=== PATIENT | female | born 1945 | race Caucasian/White ===

== ENCOUNTER 2023-12-05 02:58 | Inpatient (IN) | payer MEDICARE ==
[2023-12-05] MEDS ORDERED: Ondansetron PF 4 MG/2 ML Vial ONE (03:13)
[2023-12-05] MEDS ORDERED: Acetaminophen 500 MG TAB ONE (03:37)
[2023-12-05 03:45] LABS: Hematocrit 36.6 % (36.0-47.0); Hemoglobin 12.1 g/dL (12.0-16.0); Mean Corpuscular HGB CONC 33.1 g/dL (32.0-36.0); Mean Corpuscular Hemoglobin 33.3 pg (27.0-31.0); Mean Corpuscular Volume 100.8 fL (78.0-98.0); Mean Platelet Volume 9.5 fL (7.4-10.4); Platelet Count 273 10x3/uL (130-400); RBC Distribution Width 13.9 % (11.5-14.5); Red Blood Cell (RBC) Count 3.63 mill/uL (4.20-5.40)
[2023-12-05 04:03] LABS: ALT (SGPT) 35 U/L (8-55); AST (SGOT) 34 U/L (5-34); Albumin 3.6 g/dL (3.4-4.8); Alkaline Phosphatase 95 U/L (40-110); Anion Gap 11 mmol/L (10-20); BUN (Urea Nitrogen) 16 mg/dL (9.8-20.1); Bilirubin, Total 1.1 mg/dL (0.2-1.2); Calc. Creatinine Clearance 0 mL/min (70-130); Calcium 8.7 mg/dL (7.8-10.44); Carbon Dioxide 23 mmol/L (23-31); Chloride 105 mmol/L (98-107); Estimated GFR 58; Globulin 2.6 g/dL (2.4-3.5); Glucose 91 mg/dL (83-110); Protein, Total 6.2 g/dL (5.8-8.1); Sodium 136 mmol/L (136-145)
[2023-12-05] MEDS ORDERED: Sodium Chloride 0.9% 100 ML ONE (04:10)
[2023-12-05] MEDS ORDERED: Cefepime 2 GM VIAL ONE (04:10)
[2023-12-05 04:14] LABS: Band 10 % (5-11); Lymphocytes 2 % (21-51); Macrocytosis SLIGHT = 6-15 cells HPF (0-5); Metamyelocyte 8 % (0-0); Myelocyte 2 % (0-0); Neutrophil 79 % (42-75); Ovalocytes SLIGHT = 2-5 cells HPF (0-1); Platelet Adequacy Comment Platelets Normal; Toxic Granulation SLIGHT
[2023-12-05 06:08] LABS: Bacteria/HPF None Seen HPF (None Seen); Bilirubin Negative (Negative); Blood, Urine Negative (Negative); CAUTI Indications for Culture Fever or rigors; Clarity Clear (Clear); Glucose, Urine (Dipstick) Normal (Negative); Ketone, Urine Negative (Negative); Leukocyte Negative Leu/uL (Negative); Nitrite Negative (Negative); Protein, Urine (Dipstick) Negative (Neg-Trace); RBC/HPF 0-3 HPF (0-3); Specific Gravity, Urine 1.024 (1.002-1.036); Squamous Epithelial 0-3 HPF (0-3); Urobilinogen Normal mg/dL (Less than 2); WBC/HPF 0-3 HPF (0-3)
[2023-12-05] MEDS ORDERED: Promethazine HCl 25 MG/ML VIAL ONE (06:12)
[2023-12-05 06:18] LABS: Urine Culture Reflex No No
[2023-12-05] MEDS ORDERED: Potassium Chloride 20 MEQ TAB ONE (08:04)
[2023-12-05] MEDS ORDERED: Loperamide HCl 2 MG CAP PO PRN ×2 (08:54)
[2023-12-05] MEDS: Vancomycin 1 GM in Premix 1 BAG IVPB SCH (09:43)
[2023-12-05] MEDS: Famotidine/PF 20 mg/2ml Vial SLOW IVP SCH (09:43)
[2023-12-05] MEDS: Enoxaparin 40 MG (0.4 mL) SYRINGE SC SCH (09:43)
[2023-12-05] MEDS: Sodium Chloride 0.9% 1,000 ML IV SCH (10:00)
[2023-12-05 10:37] LABS: Vancomycin, Random Less than 1.4 ug/mL (See Comment)
[2023-12-05] MEDS: Vancomycin 1 GM in Sodium Chloride 0.9% 250 ML 300 ML IVPB SCH (10:38)
[2023-12-05] MEDS ORDERED: Iopamidol-370 76% 500 ML MDV (1 ML CHARGE) ONE (11:00)
[2023-12-05 11:46] LABS: Vancomycin, Trough Less than 1.4 ug/mL
[2023-12-05] MEDS: Vancomycin (BATCH) 1.5 GM in Premix 1 BAG IVPB SCH (12:56)
[2023-12-05] MEDS: Acetaminophen 325 MG TAB PO PRN (15:33)
[2023-12-05] MEDS: Ondansetron PF 4 MG/2 ML Vial IVP PRN (15:34)
[2023-12-05] MEDS: Cefepime 2 GM in Sodium Chloride 0.9% 100 ML IVPB SCH (15:34)
[2023-12-05] MEDS: Amlodipine 10 MG TAB PO SCH (20:45)
[2023-12-05] MEDS: ALPRAZolam 0.5 MG TAB PO SCH (20:46)
[2023-12-06] MEDS: Cefepime 2 GM in Sodium Chloride 0.9% 100 ML IVPB SCH (04:17)
[2023-12-06 09:09] LABS: Hematocrit 29.6 % (36.0-47.0); Hemoglobin 9.7 g/dL (12.0-16.0); Mean Corpuscular HGB CONC 32.8 g/dL (32.0-36.0); Mean Corpuscular Hemoglobin 33.2 pg (27.0-31.0); Mean Corpuscular Volume 101.4 fL (78.0-98.0); Mean Platelet Volume 10.4 fL (7.4-10.4); Platelet Count 175 10x3/uL (130-400); Red Blood Cell (RBC) Count 2.92 mill/uL (4.20-5.40)
[2023-12-06 09:19] LABS: Anion Gap 10 mmol/L (10-20); BUN (Urea Nitrogen) 11 mg/dL (9.8-20.1); Calc. Creatinine Clearance 68 mL/min (70-130); Calcium 8.1 mg/dL (7.8-10.44); Carbon Dioxide 21 mmol/L (23-31); Chloride 107 mmol/L (98-107); Estimated GFR 80; Glucose 78 mg/dL (83-110); Sodium 135 mmol/L (136-145)
[2023-12-06] MEDS ORDERED: Acetaminophen 325 MG TAB PO PRN (10:22)
[2023-12-06] MEDS ORDERED: TRAMADOL HCL 25 MG PO PRN (10:22)
[2023-12-06] MEDS ORDERED: traMADol HCl 50 MG TAB PO PRN (10:26)
[2023-12-06] MEDS: Potassium Chloride 20 MEQ TAB PO SCH (10:44)
[2023-12-06] MEDS: Vancomycin HCl 750 MG in Sodium Chloride 0.9% 250 ML 250 ML IVPB SCH (10:45)
[2023-12-06 12:06] LABS: Band 10 % (5-11); Burr Cells SLIGHT = 2-5 cells HPF (0-1); Hypochromia SLIGHT = 6-15 cells HPF (0-5); Lymphocytes 8 % (21-51); Macrocytosis SLIGHT = 6-15 cells HPF (0-5); Metamyelocyte 7 % (0-0); Neutrophil 75 % (42-75); Platelet Adequacy Comment Platelets Normal; Smudge Cells 2.7 %
[2023-12-06] MEDS: Diphenoxylate HCl/Atropine Tablet PO SCH (12:37)
[2023-12-06] MEDS ORDERED: Vancomycin (BATCH) 1.25 GM in Premix 1 BAG IVPB SCH (14:00)
[2023-12-07 05:47] LABS: Vancomycin, Random 16.1 ug/mL (See Comment)
[2023-12-07 05:51] LABS: Hematocrit 27.6 % (36.0-47.0); Hemoglobin 9.2 g/dL (12.0-16.0); Mean Corpuscular HGB CONC 33.3 g/dL (32.0-36.0); Mean Corpuscular Volume 98.9 fL (78.0-98.0); Mean Platelet Volume 10.2 fL (7.4-10.4); Platelet Count 143 10x3/uL (130-400); RBC Distribution Width 13.5 % (11.5-14.5); Red Blood Cell (RBC) Count 2.79 mill/uL (4.20-5.40)
[2023-12-07 05:52] LABS: ALT (SGPT) 22 U/L (8-55); AST (SGOT) 18 U/L (5-34); Albumin 2.6 g/dL (3.4-4.8); Alkaline Phosphatase 66 U/L (40-110); Anion Gap 9 mmol/L (10-20); BUN (Urea Nitrogen) 8 mg/dL (9.8-20.1); Bilirubin, Total 1.2 mg/dL (0.2-1.2); Calc. Creatinine Clearance 71 mL/min (70-130); Calcium 8.1 mg/dL (7.8-10.44); Carbon Dioxide 23 mmol/L (23-31); Chloride 107 mmol/L (98-107); Estimated GFR 84; Globulin 2.2 g/dL (2.4-3.5); Glucose 84 mg/dL (83-110); Potassium 3.4 mmol/L (3.5-5.1); Protein, Total 4.8 g/dL (5.8-8.1); Sodium 136 mmol/L (136-145)
[2023-12-07 06:04] VITALS: BMI 26.9
[2023-12-07 06:33] LABS: Anisocytosis SLIGHT = 6-15 cells HPF (0-5); Band 15 % (5-11); Eosinophils 1 % (0-10); Large Platelets 4.8 % (0-5); Lymphocytes 14 % (21-51); Macrocytosis SLIGHT = 6-15 cells HPF (0-5); Metamyelocyte 8 % (0-0); Myelocyte 2 % (0-0); Neutrophil 60 % (42-75); Ovalocytes SLIGHT = 2-5 cells HPF (0-1); Platelet Adequacy Comment Platelets Normal; Smudge Cells 9.5 %; Toxic Granulation SLIGHT; Vacuoles SLIGHT
[2023-12-07 06:45] LABS: Campy jejuni + coli by PCR Negative (Negative); STEC Shiga Toxin 1+2 Negative (Negative); Salmonella spp. by PCR Negative (Negative); Shigella spp + EIEC by PCR Negative (Negative)
[2023-12-07 15:14] VITALS: BMI 26.9
[2023-12-07 16:37] VITALS: BP 123/72; TEMP 98.3
== END 2023-12-07 16:20 | disposition home or self-care (01) | DRG 395 ==
LOC: ERS 02:58 → MSONC 09:24
PROVIDERS: ADMIT Internal Medicine; ATTEND Internal Medicine
DX: K52.1 Toxic gastroenteritis and colitis (principal); E87.6 Hypokalemia; C50.911 Malignant neoplasm of unspecified site of right female breast; T45.1X5A Adverse effect of antineoplastic and immunosuppressive drugs, initial encounter; Z88.2 Allergy status to sulfonamides; I10 Essential (primary) hypertension; K21.9 Gastro-esophageal reflux disease without esophagitis; Z90.710 Acquired absence of both cervix and uterus; Z90.722 Acquired absence of ovaries, bilateral; F41.9 Anxiety disorder, unspecified; Z90.11 Acquired absence of right breast and nipple
CPT/HCPCS: 36415; 71045; 71260; 74177; 80048; 80053; 80202; 81001; 83605; 85025; 87040; 87086; 87505; 93005; 96374; 96375; 97139; J0692; J1650; J2405; J2550; J3370; J3490; J7030; J7050; Q9967